=== PATIENT | female | born 1980 | race Caucasian/White ===

== ENCOUNTER 2017-06-05 03:50 | Emergency (ER) | payer BC ==
[~2017-06-05] VITALS: Ht 154.9 cm; Wt 62.1 kg
[~2017-06-05 03:50] MED LIST: ASPI1TAB30 PO; CLON1TAB PO; OXYC20TA34 PO; PROM25TA10 PO; SULF1TAB24 PO
--- NOTE | 2017-06-05 04:08 | PHYS DOC ---
Past History Past Medical History: Other Past Surgical History: , Tonsillectomy, Tubal ligation Alcohol Use: None Drug Use: None Adult General Chief Complaint Chief Complaint: PELVIC PAIN HPI HPI Patient is a 37 year old F who presents with right lower quadrant pain 24 hours. Patient states that over the past day her right lower quadrant pain has increased with associated nausea vomiting and no fevers. Patient denies any vaginal discharge. Patient states she still has her appendix however had her tubes tied. Patient denies any chest pain returns of breath. Patient has no other symptoms. Patient denies any dysuria. Review of Systems Review of Systems GEN: Denies fevers, chills, sweats HEENT: Denies blurred vision, sore throat CV: Denies chest pain RESP: Denies shortness of air, cough GI: RLQ pain with N/V NEURO: Denies confusion, dizziness MSK: Denies weakness, joint pain/swelling Current Medications Current Medications Current Medications Medications (Trade) Dose Ordered Sig/Dung Start Time Stop Time Status Last Admin Dose Admin Ketorolac Tromethamine (Toradol) 30 mg 1X ONCE 06/05/17 04:15 06/05/17 04:16 UNV Sodium Chloride 1,000 ml @ 1,000 mls/hr 1X ONCE 06/05/17 04:15 06/05/17 05:14 UNV Allergies Allergies Allergies Coded Allergies Type Severity Reaction Last Updated Verified No Known Drug Allergies 05/19/15 No Physical Exam Physical Exam GEN.: No apparent distress. Alert and oriented. HEENT: Head is normocephalic, atraumatic NECK: Supple. LUNGS: CTAB. HEART: RRR, S1, S2 present. Peripheral pulses intact ABDOMEN: Soft, tenderness palpation right lower quadrant with no rebound tenderness. Positive bowel sounds. EXTREMITIES: Without any cyanosis. NEUROLOGIC: Normal speech, normal tone PSYCHIATRIC: Normal affect, normal mood. SKIN: No ulcerations Current Patient Data Lab Results Current Medications Medications (Trade) Dose Ordered Sig/Dung Route PRN Reason Start Time Stop Time Status Last Admin Dose Admin Ketorolac Tromethamine (Toradol) 30 mg 1X ONCE IV 06/05/17 04:30 06/05/17 04:31 DC 06/05/17 04:30 Sodium Chloride 1,000 ml @ 1,000 mls/hr 1X ONCE IV 06/05/17 04:30 06/05/17 05:29 06/05/17 04:30 Iohexol (Omnipaque 300 Mg/ml) 75 ml 1X ONCE IV 06/05/17 04:30 06/05/17 04:31 DC 06/05/17 04:27 Info (Do NOT chart on this entry -- for MONITORING) 1 each PRN DAILY PRN MC SEE COMMENTS 06/05/17 04:30 06/07/17 04:29 EKG EKG Not performed [] Radiology/Procedures Radiology/Procedures CT abd and pelvis: IMPRESSION: 1. No definite evidence of bowel obstruction [place] [address] IMAGING REPORT Signed PATIENT: ARIAN GARCIA ACCOUNT: [id number] : 1980 LOCATION: ER AGE: 37 SEX: F EXAM STATUS: REG ER ORD. PHYSICIAN: SARAH KUMAR DO REASON: Right pelvic pain PROCEDURE: US PELVIS W/TV Pelvic ultrasound dated 06/05/2017. Comparison made to CT scan dated same day.. CLINICAL INDICATION: Pelvic pain and right lower quadrant pain and nausea for 2 days. FINDINGS: Transabdominal and transvaginal imaging was performed. Uterus measures 8.5 x 4.3 x 5.2 cm. Nodular focus at the posterior uterine body measures 2 cm in size, consistent with fibroid. Endometrial complex is normal in thickness for age measuring 4 mm. Right ovary measures 3.0 x 2.8 x 1.5 cm. Left ovary measures 2.7 x 3.0 x 1.3 cm. No adnexal mass or free fluid. Normal color Doppler flow to both ovaries. IMPRESSION: 1. No acute sonographic abnormality. 2. Fibroid uterus. Electronically signed by: Finesse Pitts MD (06/05/2017 7:21 AM) [facility] DICTATED AND SIGNED BY: FINESSE PITTS MD DATE: 06/05/17 07 CC: MARK SHRESTHA MD; JASS MAJOR APRN; SARAH KUMAR DO ~ [] Course & Med Decision Making Course & Med Decision Making Pertinent Labs and Imaging studies reviewed. (See chart for details) ED course: Patient was seen and examined the emergency room CBC, CMP, UA, and CT scan abdomen and pelvis were ordered along with 30 g of Toradol 0522: Patient still having right lower quadrant pain therefore will prescribe 50 g of fentanyl IV 0541: Patient is still having significant right lower quadrant/pelvis pain despite IV pain medication therefore we'll obtain an ultrasound the pelvis transvaginal to further evaluate. Patient denies any vaginal discharge or vaginal bleeding. 0600: Care has been transitioned to Dr. Shrestha who will follow-up on [labs], [ radiology], and final disposition of the patient. I see him care of patient at 0600. The patient's ultrasound imaging showed no acute abnormalities but did reveal evidence of fibroid uterus. Patient was given oral hydrocodone in the emergency department. Spoke with patient regarding findings on imaging. The source of patient's pain may be related to fibroids and possible premenstrual symptoms. The patient does note that she has had irregular periods over the past several months. The patient will be prescribed Naprosyn and hydrocodone to help with symptomatic control. Patient was referred to Dr. Calhoun of [facility] for follow-up in one week. I also recommended follow-up with patient's primary doctor in the next 1-2 days. Advised return emergency department for any worsening symptoms. Patient voiced understanding and in agreement with treatment plan. [] Dragon Disclaimer Dragon Disclaimer This chart was dictated in whole or in part using Voice Recognition software in a busy, high-work load, and often noisy Emergency Department environment. It may contain unintended and wholly unrecognized errors or omissions. Departure Departure: Impression: Primary Impression: Pelvic pain Disposition: 01 HOME, SELF-CARE Condition: IMPROVED Referrals: JASS MAJOR APRN (PCP) Patient Instructions: Pelvic Pain, Female Additional Instructions: Follow-up with your primary doctor in 1-2 days. Follow-up with Dr. Calhoun of [facility] in one week. The following is his office address and phone number: [phone] [address] Return to the emergency department for any worsening symptoms. Scripts Hydrocodone Bit/Acetaminophen (NORCO 5-325 TABLET) 1 Each Tablet 1-2 TAB PO Q4-6HRS Y for PAIN, #20 TAB Prov: MARK SHRESTHA MD 06/05/17 Naproxen (NAPROSYN) 500 Mg Tablet 1 TAB PO BID, #20 TAB 0 Refills Prov: MARK SHRESTHA MD 06/05/17 SARAH KUMAR DO Jun 05, 2017 04:08 MARK SHRESTHA MD Jun 05, 2017 07:46
[2017-06-05] MEDS ORDERED: IV NORMAL SALINE 1,000ML 1,000 ML IV ONE (04:30)
[2017-06-05] MEDS ORDERED: IOHEXOL 300 MG/ML 75 ML VIAL. IV ONE (04:30)
[2017-06-05] MEDS ORDERED: CONTRAST GIVEN MC PRN (04:30)
[2017-06-05] MEDS ORDERED: KETOROLAC 30 MG/ML VIAL. IV ONE (04:30)
--- NOTE | 2017-06-05 05:07 | RAD ---
INDICATION: [id number] Omni 300 75cc: Lower abdominal and pelvic pain with nausea x 2 days. Hx: Tubal ligation, . No priors. COMPARISON: None. TECHNIQUE: Axial CT images were obtained through the abdomen and pelvis with intravenous contrast. One or more of the following individualized dose reduction techniques were utilized for this examination: 1. Automated exposure control; 2. Adjustment of the mA and/or kV according to patient size; 3. Use of iterative reconstruction technique. FINDINGS: Abdomen: Chest Base: Partially imaged without gross abnormality. Vessels: No abdominal aortic aneurysm. Liver/Biliary: No intrahepatic biliary duct dilation. Pancreas: No peripancreatic edema. Spleen: Normal. Kidneys/Adrenal: No hydronephrosis. GI: No free air. No bowel dilation to suggest obstruction. Suspected appendix does not appear inflamed Pelvis: Bladder: No definite adjacent inflammation. Degenerative changes the spine including at L5-S1 where there is loss of disc space height with osteophyte formation and endplate sclerosis. Bilateral neural foraminal narrowing also suspected. IMPRESSION: 1. No definite evidence of bowel obstruction or appendicitis. Electronically signed by: Carlos Enrique Riggins MD (06/05/2017 5:04 AM) [facility]
[2017-06-05 05:31] LABS: BASO % 1 % (0-3); EOS # 0.4 x10^3/uL (0.0-0.7); EOS % 4 % (0-3); HEMATOCRIT 52.6 % (36.0-47.0); HEMOGLOBIN 17.6 g/dL (12.0-15.5); LYMPH # 2.4 x10^3/uL (1.0-4.8); LYMPH % 28 % (24-48); MEAN CORPUSCULAR HEMOGLOBIN 30 pg (25-35); MEAN CORPUSCULAR HGB CONC 34 g/dL (31-37); MEAN CORPUSCULAR VOLUME 90 fL (79-100); MONO # 0.7 x10^3/uL (0.0-1.1); MONO % 9 % (0-9); NEUT # 5.1 x10^3uL (1.8-7.7); NEUT % 59 % (31-73); PLATELET COUNT 266 x10^3/uL (140-400); RED BLOOD COUNT 5.82 x10^6/uL (3.50-5.40); RED CELL DISTRIBUTION WIDTH 14.4 % (11.5-14.5); WHITE BLOOD COUNT 8.6 x10^3/uL (4.0-11.0)
[2017-06-05 05:47] LABS: ALBUMIN 3.9 g/dL (3.4-5.0); ALBUMIN/GLOBULIN RATIO 1.1 (1.0-1.7); CALCIUM 9.3 mg/dL (8.5-10.1); CREATININE 1.1 mg/dL (0.6-1.0); GFR 55.9; POTASSIUM 3.8 mmol/L (3.5-5.1); TOTAL BILIRUBIN 0.4 mg/dL (0.2-1.0); TOTAL PROTEIN 7.3 g/dL (6.4-8.2)
[2017-06-05 05:50] LABS: BACTERIA,URINE MOD /HPF (0-FEW); BILIRUBIN,URINE NEG (NEG); CLARITY,URINE CLEAR; COLOR,URINE STRAW; GLUCOSE,URINE NEG (NEG); NITRITE,URINE NEG (NEG); RBC,URINE OCC /HPF (0-2); SQUAMOUS EPITHELIAL CELL,UR FEW /LPF; UROBILINOGEN,URINE 0.2 mg/dL (0.2 mg/dL)
[2017-06-05] MEDS ORDERED: fentaNYL PF 100 MCG/2 ML VIAL IV ONE (06:00)
[2017-06-05 06:08] LABS: U PREG PATIENT NEGATIVE (NEG)
--- NOTE | 2017-06-05 07:25 | RAD ---
Pelvic ultrasound dated 06/05/2017. Comparison made to CT scan dated same day.. CLINICAL INDICATION: Pelvic pain and right lower quadrant pain and nausea for 2 days. FINDINGS: Transabdominal and transvaginal imaging was performed. Uterus measures 8.5 x 4.3 x 5.2 cm. Nodular focus at the posterior uterine body measures 2 cm in size, consistent with fibroid. Endometrial complex is normal in thickness for age measuring 4 mm. Right ovary measures 3.0 x 2.8 x 1.5 cm. Left ovary measures 2.7 x 3.0 x 1.3 cm. No adnexal mass or free fluid. Normal color Doppler flow to both ovaries. IMPRESSION: 1. No acute sonographic abnormality. 2. Fibroid uterus. Electronically signed by: Finesse Pitts MD (06/05/2017 7:21 AM) [facility]
[2017-06-05] MEDS ORDERED: HYDR-971 PO (07:46)
[2017-06-05] MEDS ORDERED: NAPR500T PO (07:46)
[2017-06-05 07:50] VITALS: BP 132/91
[2017-06-05] MEDS ORDERED: HYDROcodone/APAP 7.5/325MG 1 TAB TABLET PO ONE (08:00)
== END 2017-06-05 07:52 | disposition home or self-care (01) ==
LOC: ER 03:50
DX: R10.2 Pelvic and perineal pain (principal); R11.2 Nausea with vomiting, unspecified; Z98.51 Tubal ligation status
CPT/HCPCS: 36415; 74177; 76830; 76856; 80053; 81001; 81025; 83690; 85027; 87086; 96361; 96374; 96375; 99285; J1885; J3010; Q9967; 87186; J7030

== ENCOUNTER 2017-08-15 15:55 | Emergency (ER) | payer BC ==
[~2017-08-15] VITALS: Ht 154.9 cm; Wt 58.1 kg
[~2017-08-15 15:55] MED LIST changes: -ASPI1TAB30 PO; +ASPI1TAB31 PO; +HYDR-971 PO; +NAPR500T PO
[2017-08-15] MEDS ORDERED: BUDE0.5A3 NEB (17:14)
[2017-08-15] MEDS ORDERED: IPRA15SP NS (17:14)
--- NOTE | 2017-08-15 17:14 | PHYS DOC ---
Past History Past Medical History: Bronchitis, Other Past Surgical History: Cervical Fusion, , Tonsillectomy, Tubal ligation Alcohol Use: None Drug Use: None Adult General Chief Complaint Chief Complaint: COUGH HPI HPI Patient is a 37 year old F who presents with nasal congestion and cough over the past 2 days. She also describes mild bilateral ear pain. She feels that her symptoms are worse when she is having a coughing spell. Her symptoms are worse in the evening. She has no alleviating factors. Review of Systems Review of Systems Constitutional: Denies fever or chills [] Eyes: Denies change in visual acuity, redness, or eye pain [] HENT: Negative except history of present illness Respiratory: Denies cough or shortness of breath [] Cardiovascular: No additional information not addressed in HPI [] GI: Denies abdominal pain, nausea, vomiting, bloody stools or diarrhea [] : Denies dysuria or hematuria [] Musculoskeletal: Denies back pain or joint pain [] Integument: Denies rash or skin lesions [] Neurologic: Denies headache, focal weakness or sensory changes [] Endocrine: Denies polyuria or polydipsia [] Family History Family History Noncontributory Current Medications Current Medications Medications reviewed Allergies Allergies Allergies Coded Allergies Type Severity Reaction Last Updated Verified No Known Drug Allergies 05/19/15 No Physical Exam Physical Exam Constitutional: Well developed, well nourished, no acute distress, non-toxic appearance. [] HENT: Normocephalic, atraumatic, bilateral external ears normal, moderate congestion and mucus bilateral nares Eyes: PERRLA, EOMI, conjunctiva normal, no discharge. [] Neck: Normal range of motion, no tenderness, supple, no stridor. [] Cardiovascular:Heart rate regular rhythm, no murmur [] Lungs & Thorax: Bilateral breath sounds clear to auscultation [] Abdomen: Bowel sounds normal, soft, no tenderness, no masses, no pulsatile masses. [] Skin: Warm, dry, no erythema, no rash. [] Back: No tenderness, no CVA tenderness. [] Extremities: No tenderness, no cyanosis, no clubbing, ROM intact, no edema. [] Neurologic: Alert and oriented X 3, normal motor function, normal sensory function, no focal deficits noted. [] Psychologic: Affect normal, judgement normal, mood normal. [] Current Patient Data Vital Signs Vital Signs Date Time Temp Pulse Resp B/P (MAP) Pulse Ox O2 Delivery O2 Flow Rate FiO2 08/15/17 15:55 98.6 93 20 96 Room Air EKG EKG [] Radiology/Procedures Radiology/Procedures [] Course & Med Decision Making Course & Med Decision Making Pertinent Labs and Imaging studies reviewed. (See chart for details) Imaging was declined Dragon Disclaimer Dragon Disclaimer This chart was dictated in whole or in part using Voice Recognition software in a busy, high-work load, and often noisy Emergency Department environment. It may contain unintended and wholly unrecognized errors or omissions. Departure Departure: Impression: Primary Impression: Upper respiratory infection Additional Impression: Bronchitis Disposition: HOME, SELF-CARE Condition: STABLE Referrals: ROSA STALLINGS MD (PCP) Patient Instructions: Acute Bronchitis, Upper Respiratory Infection, Adult Additional Instructions: Tala was seen in the emergency department for cough and nasal congestion. No emergency medical condition was found on history or physical exam. Her symptoms are most consistent with an upper respiratory infection and bronchitis. She is advised to use nasal saline rinses regularly. She was also given a prescription for nose spray and a steroid breathing treatment. She is advised follow-up with her primary care doctor in the next 3-5 days for further management. She is also advised return the emergency room if she develops new or worsening symptoms. Scripts Budesonide (PULMICORT) 0.5 Mg/2 Ml Ampul.neb 1 VIAL NEB BID for 7 Days, #60 VIAL 3 Refills Prov: COSTA BENZ MD 08/15/17 Ipratropium Lynd (IPRATROPIUM BROMIDE) 15 Ml [place] 15 ML NS TID for 7 Days, SPRAY Prov: COSTA BENZ MD 08/15/17 Problem Qualifiers Primary Impression: Upper respiratory infection URI type: unspecified URI Qualified Codes: J06.9 - Acute upper respiratory infection, unspecified COSTA BENZ MD Aug 15, 2017 17:14
[2017-08-15 17:30] VITALS: BP 138/95
== END 2017-08-15 17:30 | disposition home or self-care (01) ==
LOC: ER 15:55
DX: J06.9 Acute upper respiratory infection, unspecified (principal); J40 Bronchitis, not specified as acute or chronic; H92.03 Otalgia, bilateral
CPT/HCPCS: 99283

== ENCOUNTER 2017-09-19 18:50 | Emergency (ER) | payer BC ==
[~2017-09-19] VITALS: Ht 154.9 cm; Wt 60.8 kg
[~2017-09-19 18:50] MED LIST changes: +BUDE0.5A3 NEB; +IPRA15SP NS
[2017-09-19] MEDS ORDERED: HYDR-971 PO (20:31)
[2017-09-19] MEDS ORDERED: IBUP600T16 PO (20:31)
--- NOTE | 2017-09-19 20:31 | PHYS DOC ---
Past History Past Medical History: Bronchitis, Other Past Surgical History: Cervical Fusion, , Tonsillectomy, Tubal ligation Alcohol Use: None Drug Use: None Adult General Chief Complaint Chief Complaint: LOWER EXT PAIN HPI HPI Patient is a 37-year-old female who presents here today complaining of right knee pain that occurred when she actually stepped into a vent hole and landed on her knee and twisted her right knee. Patient reports she been weightbearing since then but with a lot of discomfort. Patient denies any other symptomatology. Patient has any fevers shakes chills nausea vomiting diarrhea. Review of systems: Constitutional: Denies fever or chills Eyes: Denies change in visual acuity, redness, or eye pain HENT: Denies nasal congestion or sore throat All other systems were reviewed and found to be within normal limits, except as documented in this note. Physical exam Constitutional: Well developed, well nourished, no acute distress, non-toxic appearance. HENT: Normocephalic, atraumatic, bilateral external ears normal, oropharynx moist, no oral exudates, nose normal. Eyes: PERRLA, EOMI, conjunctiva normal, no discharge. Neck: Normal range of motion, no tenderness, supple, no stridor. Cardiovascular:Heart rate regular rhythm, Lungs & Thorax: Bilateral breath sounds clear to auscultation Abdomen: Bowel sounds normal, soft, no tenderness, no masses, no pulsatile masses. Skin: Warm, dry, no erythema, no rash. Back: No tenderness, no CVA tenderness. Extremities: She was soft tissue tenderness to her right knee greatest in the patellar and medial aspect. Patient has no ligament laxity. The patient has no joint effusion. Patient has no erythema or break in the skin. No cyanosis, no clubbing, ROM intact, no edema. Neurologic: Alert and oriented X 3, normal motor function, normal sensory function, no focal deficits noted. Psychologic: Affect normal, judgement normal, mood normal. X-ray of right knee reveals no acute fracture or dislocation of the patella. No effusion. As interpreted by ER physician. Assessment and plan: 1. Right knee contusion/sprain secondary to fall. Patient be given Rosalia and ibuprofen here in the ED as well as an Colby wrap will be discharged home with the same. Patient is instructed to follow-up with her primary care physician for further evaluation. Patient is weightbearing. We'll continue with weightbearing as tolerated. Rest ice compression and elevation. Allergies Allergies Allergies Coded Allergies Type Severity Reaction Last Updated Verified No Known Drug Allergies 05/19/15 No EKG EKG [] Radiology/Procedures Radiology/Procedures [] Course & Med Decision Making Course & Med Decision Making Pertinent Labs and Imaging studies reviewed. (See chart for details) [] Dragon Disclaimer Dragon Disclaimer This electronic medical record was generated, in whole or in part, using a voice recognition dictation system. Departure Departure: Impression: Primary Impression: Right knee sprain Additional Impression: Contusion, knee Disposition: HOME, SELF-CARE Condition: IMPROVED Referrals: ROSA STALLINGS MD (PCP) Patient Instructions: Knee Pain, Knee Sprain Scripts Hydrocodone Bit/Acetaminophen (NORCO 5-325 TABLET) 1 Each Tablet 1 TAB PO PRN Q6HRS Y for PAIN, #12 TAB 0 Refills Prov: MAHENDRA STREETER MD 09/19/17 Ibuprofen (IBUPROFEN) 600 Mg Tablet 600 MG PO QID Y for PAIN, #20 Prov: MAHENDRA STREETER MD 09/19/17 Problem Qualifiers MAHENDRA STREETER MD Sep 19, 2017 20:31
[2017-09-19] MEDS ORDERED: HYDROcodone/APAP 5/325MG 1 TAB TABLET PO ONE (20:45)
[2017-09-19] MEDS ORDERED: IBUPROFEN 600 MG TABLET. PO ONE (20:45)
[2017-09-19 21:00] VITALS: BP 154/85
--- NOTE | 2017-09-20 07:50 | RAD ---
EXAM: Right knee, 4 views HISTORY: Fall with right knee pain. COMPARISON: None. FINDINGS: No fractures are identified. Joint spaces are maintained. Alignment is normal. There is no joint effusion. IMPRESSION: 1. No fracture or joint effusion.
== END 2017-09-19 21:03 | disposition home or self-care (01) ==
LOC: ER 18:50
DX: S83.91XA Sprain of unspecified site of right knee, initial encounter (principal); W18.31XA Fall on same level due to stepping on an object, initial encounter; Y93.89 Activity, other specified; Y99.8 Other external cause status; Y92.89 Other specified places as the place of occurrence of the external cause
CPT/HCPCS: 73564; 99284

== ENCOUNTER 2017-12-06 06:39 | Emergency (ER) | payer BC ==
[~2017-12-06] VITALS: Ht 154.9 cm; Wt 60.8 kg
[~2017-12-06 06:39] MED LIST changes: +IBUP600T16 PO; +NAPR-683 PO; -NAPR500T PO
--- NOTE | 2017-12-06 07:02 | PHYS DOC ---
General Chief Complaint: SKIN RASH/ABSCESS Stated Complaint: SKIN PROBLEM Time Seen by MD: 06:47 Source: patient, family Exam Limitations: no limitations Problems: History of Present Illness Initial Comments Patient is a 37-year-old female to the emergency department complaining of itchy rash. Patient states that yesterday afternoon she noticed "a small red spot on her wrist." Since that time she has developed a whole body itchy red rash with hives which became much worse this morning after taking a hot bath. She took one 25 mg Benadryl, Valium and oxycodone at 4 AM without any relief. She denies any new known exposures or medications denies any feeling as if she has a lump in her throat hoarseness coughing wheezing or dyspnea on exertion. On my evaluation she is very uncomfortable and agitated due to itching she describes her symptoms as severe and nothing she has tried has helped at all. No prior history of allergies or rashes and other than chronic back pain she denies any ongoing medical problems. Timing/Duration: 24 hours Severity: severe Modifying Factors: improves with cold therapy, worse with movement Associated Symptoms: rash Allergies: Coded Allergies: No Known Drug Allergies (Unverified , 05/19/15) Past Medical History Medical History: other (chronic back pain) Surgical History: noncontributory Family History Significant Family History: no pertinent family hx Social History Smoker: cigarettes Alcohol: none Drugs: none Review of Systems Constitutional: denies chills, denies diaphoresis, denies fever, denies malaise EENTM: denies throat swelling, denies mouth swelling Respiratory: denies cough, denies shortness of breath, denies stridor, denies wheezing Cardiovascular: denies chest pain, denies palpitations, denies syncope Gastrointestinal: denies abdominal pain, denies nausea, denies vomiting Musculoskeletal: see HPI Skin: see HPI Physical Exam General Appearance: WD/WN, severe distress Eyes: bilateral eye normal inspection, bilateral eye PERRL, bilateral eye EOMI Ear, Nose, Throat: hearing grossly normal, normal ENT inspection, normal pharynx (no soft tissue swelling airway is widely patent) Neck: non-tender, supple Respiratory: normal breath sounds, no respiratory distress Extremities: normal range of motion, no calf tenderness 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 The skin is warm and very erythematous) Orders, Labs, Meds Solu-Medrol 125 mg, Benadryl 25 mg, Pepcid 20 mg, and a 1 L normal saline IV bolus initiated. 0751: Patient rechecked, she is now resting comfortably itching has almost resolved. She still has some patches of redness remaining and the Solu-Medrol has not taken maximum effect. Rechecked, continued improvement will discharge home. Departure Time of Disposition: 07:51 Disposition: 01 HOME, SELF-CARE Diagnosis: allergic reaction NOS Condition: IMPROVED Patient Instructions: Allergy Tests Additional Instructions: Continue to try to isolate what possible new exposure could've caused today's symptoms. Cool temperature environment for optimal symptom control. [id number] Pepcid and Benadryl while taking prednisone. Prescription: Prednisone Follow-up with your doctor in 3-5 days for recheck and to consider possible allergy testing. Return to ED with new or changing symptoms. LATRICE HERNANDEZ DO Dec 06, 2017 07:02
[2017-12-06] MEDS ORDERED: methylPREDNISolone SOD SUCC PF 125 MG/2 ML VIAL. IV ONE (07:15)
[2017-12-06] MEDS ORDERED: diphenhydrAMINE 50 MG/ML VIAL IV ONE (07:15)
[2017-12-06] MEDS ORDERED: FAMOTIDINE 20 MG/2 ML VIAL IVP ONE (07:15)
[2017-12-06] MEDS ORDERED: IV NORMAL SALINE 1,000ML 1,000 ML IV SCH (07:30)
[2017-12-06] MEDS ORDERED: PRED20TA PO (07:50)
[2017-12-06 08:31] VITALS: BP 100/80
== END 2017-12-06 08:23 | disposition home or self-care (01) ==
LOC: ER 06:39
DX: T78.40XA Allergy, unspecified, initial encounter (principal); X58.XXXA Exposure to other specified factors, initial encounter; G89.29 Other chronic pain; F17.210 Nicotine dependence, cigarettes, uncomplicated
CPT/HCPCS: 96361; 96374; 96375; 99284; J1200; J2930; S0028; J7030

== ENCOUNTER 2017-12-30 23:17 | Emergency (ER) | payer SELFPAY ==
[~2017-12-30] VITALS: Ht 154.9 cm; Wt 62.6 kg
[~2017-12-30 23:17] MED LIST changes: +PRED20TA PO
[2017-12-30 23:20] VITALS: BP 128/80
[2017-12-30] MEDS ORDERED: diphenhydrAMINE 50 MG/ML VIAL ONE (23:31)
[2017-12-30] MEDS ORDERED: FAMOTIDINE 20 MG/2 ML VIAL ONE (23:31)
[2017-12-30] MEDS ORDERED: methylPREDNISolone SOD SUCC PF 125 MG/2 ML VIAL. ONE (23:31)
[2017-12-30] MEDS ORDERED: diphenhydrAMINE 50 MG/ML VIAL IVP ONE (23:45)
[2017-12-30] MEDS ORDERED: FAMOTIDINE 20 MG/2 ML VIAL IVP ONE (23:45)
[2017-12-30] MEDS ORDERED: methylPREDNISolone SOD SUCC PF 125 MG/2 ML VIAL. IV ONE (23:45)
[2017-12-31] MEDS ORDERED: LORazepam 2 MG/ML VIAL IV ONE (01:00)
[2017-12-31] MEDS ORDERED: IV NORMAL SALINE 1,000ML 1,000 ML IV SCH (01:00)
--- NOTE | 2017-12-31 01:07 | PHYS DOC ---
General Chief Complaint: ALLERGIC REACTION Stated Complaint: ALLERGIC REACTION,RASH POSSIBLE PEANUTS Time Seen by MD: 00:15 Source: patient Exam Limitations: no limitations Problems: History of Present Illness Initial Comments 37-year-old female comes to the ED complaining of allergic reaction. Patient states that symptoms began last night with some mild generalized itching. Symptoms have worsened today causing hives and redness over her body. Patient complains of itching and burning globally, she is constantly writhing rubbing and itching her skin. She is very anxious, she denies any cough hoarseness or trouble breathing some lip swelling is observed by me. Heart rate 110 bpm, oxygen saturation 97% on room air and vital signs are stable. No pre- arrival treatment patient had similar allergic reaction 1 month ago. No definite allergen unknown, patient thinks she may be allergic to peanuts but is uncertain that she had any actual peanut exposure. Timing/Duration: 24 hours Severity: severe Modifying Factors: improves with cold therapy, worse with movement Associated Symptoms: rash Allergies: Coded Allergies: No Known Drug Allergies (Unverified , 05/19/15) Past Medical History Medical History: no pertinent history, other Surgical History: noncontributory Family History Significant Family History: no pertinent family hx Social History Smoker: cigarettes Alcohol: none Drugs: none Review of Systems Constitutional: denies chills, denies diaphoresis, denies fever, denies malaise EENTM: see HPI, denies ear discharge, denies nose pain, denies nose congestion Respiratory: denies cough, denies shortness of breath, denies wheezing Cardiovascular: denies chest pain, denies palpitations, denies syncope Gastrointestinal: denies abdominal pain, denies diarrhea, denies nausea, denies vomiting Musculoskeletal: denies back pain, denies joint swelling, denies neck pain Skin: see HPI Psychiatric/Neurological: denies headache, denies numbness, denies paresthesia Immunological/Allergic: see HPI Physical Exam General Appearance: WD/WN, moderate distress Eyes: bilateral eye normal inspection, bilateral eye PERRL, bilateral eye EOMI Ear, Nose, Throat: hearing grossly normal, normal ENT inspection (lip swelling noted no tongue or throat swelling), normal pharynx Neck: non-tender, full range of motion, supple, other (no stridor) Respiratory: normal breath sounds, no respiratory distress Cardiovascular: normal peripheral pulses, regular rate, rhythm Extremities: normal range of motion, no pedal edema, no calf tenderness Neurologic/Psychiatric: waste oil pumper II-XII nml as tested, no motor/sensory deficits, alert, oriented x 3 Skin: warm/dry (erythema and hives over her entire skin surface worse at the skin folds and underclothing and warm areas) Orders, Labs, Meds 0144: Patient has received Solu-Medrol Benadryl and Pepcid in intravenously in addition to a normal saline bolus and 1 mg of Ativan. I rechecked her several times throughout the course and she is finally comfortable and resting quietly the hives have resolved she still has a few small red patches. Lip swelling has resolved completely. She continues to have no respiratory symptoms. She has some mild itching but is overall feeling better and expresses interest in discharge home. We will give prednisone by mouth to cover until morning I discussed the departure instructions including [id number] and prescription medications, remaining a cool temperature environment, and allergy testing with her doctor upon resolution of symptoms. She expressed agreement and understanding of the treatment plan her daughter will drive her home. Departure Time of Disposition: 01:46 Disposition: 01 HOME, SELF-CARE Diagnosis: allergic reaction Condition: IMPROVED Patient Instructions: Allergy Tests Additional Instructions: No driving or operating machinery while sedated with medication. Continue to try to identify and avoid potential causative substance. [id number] Pepcid 20 mg twice daily, Benadryl 25 mg every 6 hours while taking prednisone. Prescription: Prednisone, EpiPen Follow-up with your doctor in 7-10 days for recheck and to discuss possible allergy testing. Return to ED with new or changing symptoms. LATRICE HERNANDEZ DO Dec 31, 2017 01:07
[2017-12-31] MEDS ORDERED: PRED20TA PO (01:43)
[2017-12-31] MEDS ORDERED: EPIN0.3A3 IJ (01:50)
[2017-12-31] MEDS ORDERED: STARTER PACK-hydrOXYzine 1 STARTPACK TABLET PO ONE (02:15)
[2017-12-31] MEDS ORDERED: predniSONE 10 MG TABLET PO ONE (02:15)
== END 2017-12-31 02:05 | disposition home or self-care (01) ==
LOC: ER 23:17
DX: T78.40XA Allergy, unspecified, initial encounter (principal); F17.210 Nicotine dependence, cigarettes, uncomplicated; X58.XXXA Exposure to other specified factors, initial encounter
CPT/HCPCS: 96361; 96374; 96375; 99284; J1200; J2060; J2930; J7512; S0028; J7030

== ENCOUNTER 2018-04-06 12:12 | Emergency (ER) | payer BC ==
[~2018-04-06] VITALS: Ht 157.5 cm; Wt 56.7 kg
[~2018-04-06 12:12] MED LIST changes: +EPIN0.3A3 IJ
[2018-04-06] MEDS ORDERED: IV NORMAL SALINE 1,000ML 1,000 ML IV SCH (12:24)
--- NOTE | 2018-04-06 12:29 | PHYS DOC ---
Past History Additional Past Medical Histor: chronic back pain Past Surgical History: , Tonsillectomy, Tubal ligation Additional Past Surgical Histo: back surgery Smoking: Cigarettes Alcohol Use: None Drug Use: None Adult General Chief Complaint Chief Complaint: ABDOMINAL PAIN [facility] HPI Patient is a 38-year-old female who presents to the emergency department for evaluation of epigastric pain that has been present for the past 2-3 days. She has also had several episodes of nonbloody, nonbilious vomiting. She has had some diarrhea today as well. She has not had any documented fevers or chills, but has felt miner the past. Nothing in particular, including eating, seems to improve, or worsen, her pain. The pain radiates from her epigastric area towards her sides bilaterally. She denies any vaginal bleeding or discharge or lower abdominal pain. Except as noted above, there are no alleviating, or exacerbating factors to her symptoms Review of Systems Review of Systems Constitutional: Denies chills [] Eyes: Denies change in visual acuity, redness, or eye pain [] HENT: Denies nasal congestion or sore throat [] Respiratory: Denies cough or shortness of breath [] Cardiovascular: The patient denies any shortness of breath, chest pain, palpitations, or orthopnea [] GI: No additional information not addressed in HPI [] : Denies dysuria or hematuria [] Musculoskeletal: Denies back pain or joint pain [] Integument: Denies rash or skin lesions [] Neurologic: Denies headache, focal weakness or sensory changes [] Endocrine: Denies polyuria or polydipsia [] All other systems were reviewed and found to be within normal limits, except as documented in this note. Allergies Allergies Allergies Coded Allergies Type Severity Reaction Last Updated Verified No Known Drug Allergies 05/19/15 No Physical Exam Physical Exam PHYSICAL EXAM: CONSTITUTIONAL: Well developed, well nourished HEAD: normocephalic, atraumatic EENT: PERRL, EOMI. Conjunctivae normal color, sclerae non-icteric; moist mucous membranes. NECK: Supple, non-tender; no meningismus. LUNGS: Lungs CTA, breathing even and unlabored. Normal air movement. HEART: Regular rate and rhythm, no murmur CHEST: No deformity; non-tender ABDOMEN: The abdomen is soft, there is focal epigastric tenderness to palpation which reproduces the patient's pain, the remainder of the abdomen is soft and nontender, without rebound or guarding, the right upper quadrant is nontender, Christiansen's sign is absent, the lower abdomen including the right lower quadrant is non-tender, no masses or bruits. Normal bowel sounds EXTREM: Normal ROM; no deformity, no calf tenderness. Normal pulses palpable in all extremities. There is no pedal edema. SKIN: No rash; no diaphoresis NEURO: Alert; normal speech and cognition; CN's grossly intact; strength grossly intact without focal deficit. BACK: No CVA TTP. EKG EKG [Normal sinus rhythm a rate of 73 bpm, normal axis, normal intervals, there are no acute ischemic ST/T changes.] Radiology/Procedures Radiology/Procedures [] Impressions: PROCEDURE: CT ABD PELV W/ IV CONTRST ONLY CT of the abdomen and pelvis with contrast 04/06/2018 2:09 PM Indication: ABD PAIN SINCE LAST NIGHT, LEUKOCYTOSIS Comparison study: CT of the abdomen and pelvis June 05, 2017 Technique: Multidetector CT imaging of the abdomen and pelvis was performed following the administration of IV contrast. Findings: The partially visualized lung bases demonstrate no acute abnormality. Liver and gallbladder are grossly unremarkable. Spleen, adrenal glands, bilateral kidneys are unremarkable. The pancreatic duct is minimally prominent, but this is unchanged from prior study. There is no evidence of bowel obstruction. There is apparent thickening of the sigmoid colon and rectum. More mild possible thickening involving the descending colon is seen. Findings suggest a colitis. Differential considerations include infection and inflammatory change. Ischemia is less likely given distribution and patient age. The appendix is normal. Bladder is grossly unremarkable. The uterus is introverted but similar to prior studies. No significant free fluid or free air seen in the abdomen and pelvis. No acute osseous abnormality is identified. IMPRESSION: Thickening of the sigmoid colon and rectum, and to a lesser degree the descending colon. Findings favor colitis, which would most likely be infectious or inflammatory in etiology. Course & Med Decision Making Course & Med Decision Making Pertinent Labs and Imaging studies reviewed. (See chart for details) [2:40 PM: The patient's condition remained stable and she is feeling better at this time. Her labs show hemoconcentration with elevated hemoglobin and hematocrit, and white blood cell count of 13,000. CT scan was performed and showed evidence of colitis. The patient be treated with Cipro and Flagyl. She feels well enough to go home. The importance of close follow-up with her primary care provider and return precautions were discussed in detail.] Maria Antonia Disclaimer Marthaon Disclaimer This electronic medical record was generated, in whole or in part, using a voice recognition dictation system. Departure Departure: Impression: Primary Impression: Colitis Additional Impressions: Abdominal pain Nausea vomiting and diarrhea Disposition: HOME, SELF-CARE Condition: STABLE Referrals: ROSA STALLINGS MD (PCP) Patient Instructions: Abdominal Pain, Colitis, Nausea and Vomiting Scripts Ondansetron Hcl (ZOFRAN) 4 Mg Tablet 1 TAB PO Q6HRS, #20 TAB Prov: DODIE DUKE MD 04/06/18 Metronidazole (FLAGYL) 500 Mg Tablet 1 TAB PO BID, #14 TAB Prov: DODIE DUKE MD 04/06/18 Ciprofloxacin Hcl (CIPRO) 500 Mg Tablet 1 TAB PO BID, #14 TAB Prov: DODIE DUKE MD 04/06/18 Dicyclomine Hcl (DICYCLOMINE HCL) 20 Mg Tablet 1 TAB PO QID PRN for abdominal pain, #20 TAB Prov: DODIE DUKE MD 04/06/18 Problem Qualifiers DODIE DUKE MD Apr 06, 2018 12:29
[2018-04-06 12:52] LABS: BASO # 0.1 x10^3/uL (0.0-0.2); BASO % 1 % (0-3); EOS # 0.1 x10^3/uL (0.0-0.7); EOS % 1 % (0-3); HEMATOCRIT 54.9 % (36.0-47.0); HEMOGLOBIN 18.2 g/dL (12.0-15.5); LYMPH # 1.9 x10^3/uL (1.0-4.8); LYMPH % 14 % (24-48); MEAN CORPUSCULAR HEMOGLOBIN 31 pg (25-35); MEAN CORPUSCULAR HGB CONC 33 g/dL (31-37); MEAN CORPUSCULAR VOLUME 94 fL (79-100); MONO # 0.5 x10^3/uL (0.0-1.1); MONO % 3 % (0-9); NEUT # 11.2 x10^3uL (1.8-7.7); NEUT % 82 % (31-73); PLATELET COUNT 380 x10^3/uL (140-400); RED BLOOD COUNT 5.85 x10^6/uL (3.50-5.40); RED CELL DISTRIBUTION WIDTH 13.8 % (11.5-14.5); WHITE BLOOD COUNT 13.8 x10^3/uL (4.0-11.0)
[2018-04-06] MEDS: MORPHINE SULFATE 4 MG/ML DISP.SYRIN. IV/SQ PRN ×4 (12:53→15:51)
--- NOTE | 2018-04-06 12:59 | EKG ---
[address] [address] Test Date: 2018-04-06 Test Time: 12:53:01 Pat Name: ARIAN GARCIA Department: Room: Gender: F Special Procedure Tech: RANI : 1980 Requested By: DODIE DUKE Order Number: [id number] Reading MD: Measurements Intervals Mina Rate: 73 P: 62 MI: 140 QRS: 55 QRSD: 98 T: 66 QT: 364 QTc: 404 Interpretive Statements SINUS RHYTHM NORMAL ECG RI6.01 No previous ECG available for comparison
[2018-04-06] MEDS ORDERED: PANTOPRAZOLE IV 40 MG VIAL. IVP ONE (13:00)
[2018-04-06] MEDS ORDERED: ONDANSETRON PF 4 MG/2 ML VIAL. IV ONE (13:00)
[2018-04-06] MEDS ORDERED: LIDO:MAALOX 1:1 20 ML SINGLE DOSE. PO ONE (13:00)
[2018-04-06 13:01] LABS: PREG TEST PT QUAL NEGATIVE (NEG)
[2018-04-06 13:05] LABS: ALBUMIN 4.3 g/dL (3.4-5.0); ALBUMIN/GLOBULIN RATIO 1.1 (1.0-1.7); CALCIUM 9.9 mg/dL (8.5-10.1); CREATININE 1.2 mg/dL (0.6-1.0); GFR 50.3; POTASSIUM 3.8 mmol/L (3.5-5.1); TOTAL BILIRUBIN 0.8 mg/dL (0.2-1.0); TOTAL PROTEIN 8.3 g/dL (6.4-8.2)
[2018-04-06] MEDS ORDERED: IV NORMAL SALINE 1,000ML 1,000 ML IV ONE (13:30)
[2018-04-06] MEDS ORDERED: IOHEXOL 300 MG/ML 75 ML VIAL. IV ONE (13:45)
[2018-04-06] MEDS ORDERED: DICYCLOMINE HCL 20 MG TABLET PO ONE (13:45)
--- NOTE | 2018-04-06 14:20 | RAD ---
CT of the abdomen and pelvis with contrast 04/06/2018 2:09 PM Indication: ABD PAIN SINCE LAST NIGHT, LEUKOCYTOSIS Comparison study: CT of the abdomen and pelvis June 05, 2017 Technique: Multidetector CT imaging of the abdomen and pelvis was performed following the administration of IV contrast. Findings: The partially visualized lung bases demonstrate no acute abnormality. Liver and gallbladder are grossly unremarkable. Spleen, adrenal glands, bilateral kidneys are unremarkable. The pancreatic duct is minimally prominent, but this is unchanged from prior study. There is no evidence of bowel obstruction. There is apparent thickening of the sigmoid colon and rectum. More mild possible thickening involving the descending colon is seen. Findings suggest a colitis. Differential considerations include infection and inflammatory change. Ischemia is less likely given distribution and patient age. The appendix is normal. Bladder is grossly unremarkable. The uterus is introverted but similar to prior studies. No significant free fluid or free air seen in the abdomen and pelvis. No acute osseous abnormality is identified. IMPRESSION: Thickening of the sigmoid colon and rectum, and to a lesser degree the descending colon. Findings favor colitis, which would most likely be infectious or inflammatory in etiology. Electronically signed by: Steve Hay MD (04/06/2018 2:17 PM) [id number]
[2018-04-06 14:34] LABS: BILIRUBIN,URINE NEG (NEG); CLARITY,URINE CLOUDY; COLOR,URINE YELLOW; GLUCOSE,URINE NEG (NEG); NITRITE,URINE POS (NEG); UROBILINOGEN,URINE 0.2 mg/dL (0.2 mg/dL)
[2018-04-06 14:35] LABS: BACTERIA,URINE MOD /HPF (0-FEW); SQUAMOUS EPITHELIAL CELL,UR MANY /LPF
[2018-04-06 14:41] LABS: BARBITURATES NEG (NEG); BENZODIAZEPINES NEG (NEG); CANNABINOIDS NEG (NEG); COCAINE POS (NEG); METHADONE NEG (NEG); OPIATES POS (NEG); PHENCYCLIDINE NEG (NEG)
[2018-04-06 14:42] LABS: AMPHETAMINE/METHAMPHETAMINE NEG (NEG)
[2018-04-06] MEDS ORDERED: ONDA4TAB7 PO (14:46)
[2018-04-06] MEDS ORDERED: METR500T PO (14:46)
[2018-04-06] MEDS ORDERED: DICY20TA3 PO (14:46)
[2018-04-06] MEDS ORDERED: CIPR500T94 PO (14:46)
[2018-04-06] MEDS ORDERED: CIPROFLOXACIN 400MG PREMIX 200 ML IV ONE (15:00)
[2018-04-06] MEDS ORDERED: metroNIDAZOLE 500 MG TABLET PO ONE (15:00)
[2018-04-06 15:35] VITALS: BP 145/93
== END 2018-04-06 16:30 | disposition home or self-care (01) ==
LOC: ER 12:12
DX: K52.9 Noninfective gastroenteritis and colitis, unspecified (principal); G89.29 Other chronic pain; F17.210 Nicotine dependence, cigarettes, uncomplicated; Z98.51 Tubal ligation status; Z98.890 Other specified postprocedural states
CPT/HCPCS: 36415; 74177; 80053; 80307; 81001; 83690; 84703; 85025; 87086; 93005; 96361; 96365; 96375; 96376; 99285; C9113; J0744; J2270; J2405; Q9967; G0479; J7030

== ENCOUNTER 2018-08-30 18:38 | Emergency (ER) | payer SELFPAY ==
[~2018-08-30] VITALS: Ht 157.5 cm; Wt 56.7 kg
[~2018-08-30 18:38] MED LIST changes: +CIPR500T94 PO; +DICY20TA3 PO; +METR500T PO; +ONDA4TAB7 PO
--- NOTE | 2018-08-30 18:42 | ED.ADGEN ---
Past History Past Medical History: Anxiety, Sciatica Additional Past Medical Histor: chronic back pain Past Surgical History: , Tonsillectomy, Tubal ligation Additional Past Surgical Histo: back surgery Smoking: Cigarettes Alcohol Use: None Adult General Chief Complaint Chief Complaint ".. I fell tuesday.. [facility] HPI Patient is a 38 year old female who presents with above hx and complaints of fall after stepping thru. at air vent in the residence. Pt complaints of injury to both knees, Lt. ankle pain, pelvis, lumbar and Rt. wrist. Pt. has hx of chronic pain. Pt. seen Tuesday in Dr. Hermosillo office. No x-rays taken at that time. Pt. states pain in all sites are 08/09. Pt. is ambulatory. Can do straight leg lifts. Localizes knee pain on exam in bilateral medial collateral ligaments. Ankle lt. localized to lateral Fib./Malleolus area. Some laxity in ankle on anterior draw. Pt. localizes pain in anterior pelvic brim. Has point tenderness on Lt anterior axillary line rib 9. Has lumbar para spinal muscle tenderness. Rt. wrist tender on squeeze of distal radius and ulnar. Distal neurovascular intact. Pt. does have hx of chronic pain. Pt. denies illicit drug use. Pt. denies problems with defecation or urination. No fevers. No hx of immunosuppression. Follows with Dr. Hermosillo office. Review of Systems Review of Systems Constitutional: Denies fever or chills [] Eyes: Denies change in visual acuity, redness, or eye pain [] HENT: Denies nasal congestion or sore throat [] Respiratory: Denies cough or shortness of breath [] Cardiovascular: No additional information not addressed in [facility] [] GI: Denies abdominal pain, nausea, vomiting, bloody stools or diarrhea [] : Denies dysuria or hematuria [] Musculoskeletal: Multiple area of muscular/skeletal complaints Integument: Denies rash or skin lesions [] Neurologic: Denies headache, focal weakness or sensory changes [] Endocrine: Denies polyuria or polydipsia [] All other systems were reviewed and found to be within normal limits, except as documented in this note. Family History Family History Non-contributory Current Medications Current Medications Current Medications Medications (Trade) Dose Ordered Sig/Dung Start Time Stop Time Status Last Admin Dose Admin Ketorolac Tromethamine (Toradol Im) 60 mg 1X ONCE 08/30/18 19:15 08/30/18 19:18 DC 08/30/18 19:41 60 MG Methylprednisolone Acetate (DEPO-Medrol IM) 40 mg 1X ONCE 08/30/18 19:15 08/30/18 19:18 DC 08/30/18 19:38 40 MG Morphine Sulfate (Morphine 10mg Syringe) 5 mg 1X ONCE 08/30/18 22:30 08/30/18 22:31 DC 08/30/18 22:30 5 MG Orphenadrine Citrate (Norflex) 60 mg 1X ONCE 08/30/18 19:15 08/30/18 19:18 DC 08/30/18 19:43 60 MG Allergies Allergies Allergies Coded Allergies Type Severity Reaction Last Updated Verified peanut Allergy Intermediate 08/30/18 Yes Physical Exam Physical Exam Constitutional: moderate distress, non-toxic appearance. [] HENT: Normocephalic, atraumatic, bilateral external ears normal, oropharynx moist, no oral exudates, nose normal. [] Eyes: PERRLA, EOMI, conjunctiva normal, no discharge. [] Neck: Normal range of motion, no tenderness, supple, no stridor. [] Cardiovascular:Heart rate regular rhythm, no murmur [] Lungs & Thorax: Bilateral breath sounds equal at apex with scattered wheezes on auscultation []Chest wall tenderness as per HPI Abdomen: Bowel sounds normal, soft, no tenderness, no masses, no pulsatile masses. [] Old surgery scar Skin: Warm, dry, no erythema, no rash. []Tattoos Back:, no CVA tenderness. [] Lumbar sacral back surgery scar. Pain complaints as per history of present illness Extremities: Pain complaints as per history of present illness, no cyanosis, no clubbing, ROM intact, no edema. [] Neurologic: Alert and oriented X 3, normal motor function, normal sensory function, no focal deficits noted. []DTRs +2 patella and brachial. Psychologic: Affect normal, judgement normal, mood normal. [] Current Patient Data Vital Signs Vital Signs Date Time Temp Pulse Resp B/P (MAP) Pulse Ox O2 Delivery O2 Flow Rate FiO2 08/30/18 22:30 84 18 126/71 (89) 99 Room Air 08/30/18 18:50 98.1 Lab Results Laboratory Tests Test 08/30/18 18:50 Urine Opiates Screen Pos (NEG) Urine Methadone Screen Neg (NEG) Urine Barbiturates Neg (NEG) Urine Phencyclidine Screen Neg (NEG) Urine Amphetamine/Methamphetamine Pos (NEG) Urine Benzodiazepines Screen Neg (NEG) Urine Cocaine Screen Pos (NEG) Urine Cannabinoids Screen Neg (NEG) Urine Ethyl Alcohol Neg (NEG) EKG EKG [] Radiology/Procedures Radiology/Procedures My interpretation of x-ray shows[] Course & Med Decision Making Course & Med Decision Making Pertinent Labs and Imaging studies reviewed. (See chart for details). Ice packs when necessary. Tylenol and ibuprofen for pain. May take Flexeril 10 mg up 3 times a day for spasms. Follow-up with Dr. Hermosillo. Have him review the ER for evaluation. Have his input if physical therapy would be helpful. Encouraged patient to stop smoking. [] Final Impression Final Impression 1. Multiple skeletal and muscle skeletal complaints.[]Contusion & Sprains 2. Tobacco Use 3. Polysubstance Abuse Dragon Disclaimer Dragon Disclaimer This electronic medical record was generated, in whole or in part, using a voice recognition dictation system. SHAHID FENG MD Aug 30, 2018 18:42
[2018-08-30] MEDS ORDERED: ORPHENADRINE CITRATE 60 MG/2 ML VIAL. IM ONE (19:15)
[2018-08-30] MEDS ORDERED: KETOROLAC 60 MG/2 ML VIAL. IM ONE (19:15)
[2018-08-30] MEDS ORDERED: methylPREDNISolone ACETATE 40 MG/ML VIAL. IM ONE (19:15)
[2018-08-30 19:25] LABS: AMPHETAMINE/METHAMPHETAMINE POS (NEG); BARBITURATES NEG (NEG); BENZODIAZEPINES NEG (NEG); CANNABINOIDS NEG (NEG); COCAINE POS (NEG); METHADONE NEG (NEG); OPIATES POS (NEG); PHENCYCLIDINE NEG (NEG)
[2018-08-30] MEDS ORDERED: CYCL-331 PO (20:13)
--- NOTE | 2018-08-30 22:00 | RAD ---
Examination: CT LUMBAR SPINE WO CONTRAST History: FALL, BACK PAIN, ABNORMAL LOOKING XRAY AT L3, DOES HAVE A HX OF LAMINECTOMY AT L5S1 Comparison/Correlation: 04/06/2018 CT abdomen and pelvis with contrast Findings: Axial images of the lumbar spine were obtained. Sagittal and coronal reformatted images were provided. Topogram demonstrates significant L5-S1 disc space narrowing with vacuum phenomenon and spurring. Minimal retrolisthesis of L5 in relation S1 is present. Severe sclerosis of the L5-S1 endplates noted with disc space narrowing and vacuum phenomenon. Concentric disc bulge is evident. L3 limbus vertebra is noted. Spina bifida occulta at S1 noted. Visualized soft tissues of the retroperitoneum are grossly unremarkable. Impression: Severe L5-S1 degenerative changes and concentric disc bulge. Facet joint degenerative hypertrophy with narrowing of the neural foramina at this level in particular. L3 limbus vertebra. No suspicious process at L3. No significant change compared to previous CT exam. Electronically signed by: Andrey Hawk MD (08/30/2018 9:57 PM) [facility]
[2018-08-30 22:30] VITALS: BP 126/71
[2018-08-30] MEDS ORDERED: MORPHINE SULFATE 10 MG/ML SYRINGE. SQ ONE (22:30)
--- NOTE | 2018-08-30 23:58 | RAD ---
Examination: KNEE BILAT 4V History: FALL, KNEE PAIN Comparison/Correlation: None Findings: A total of 8 images of the knees were obtained. 4 views of each knee were provided. Patellar sunrise view of both knees was provided. Joint spaces are normal. No acute fracture or bone destruction. Soft tissues are unremarkable. No joint effusion. No degenerative change. Impression: Normal bilateral knee x-ray exam. Electronically signed by: Andrey Hawk MD (08/30/2018 11:55 PM) [facility]
--- NOTE | 2018-08-30 23:59 | RAD ---
Examination: CHEST PA LATERAL History: FALL, pain Comparison/Correlation: None Findings: PA and lateral views of chest were obtained. Heart size and pulmonary vasculature are normal. No infiltrate or pleural effusion. Bony structures are unremarkable. Impression: No active disease. If fracture is a persistent concern, consider additional imaging. Electronically signed by: Andrey Hawk MD (08/30/2018 11:56 PM) [facility]
--- NOTE | 2018-08-31 | RAD ---
Examination: LUMBAR SPINE 2-3V History: FALL, LOW BACK PAIN Comparison/Correlation: None Findings: Total 3 images of the lumbar spine were obtained including cone-down L5-S1 lateral view. Severe L5-S1 disc space narrowing is present with endplate sclerosis. Vertebral body heights are adequate. Limbus L3 superior vertebral body endplate is present. No acute fracture or bony destruction. Impression: Severe L5-S1 degenerative disc space findings. Electronically signed by: Andrey Hawk MD (08/30/2018 11:57 PM) [facility]
--- NOTE | 2018-08-31 00:01 | RAD ---
Examination: ANKLE LEFT 3V History: FALL , LEFT ANKLE PAIN Comparison/Correlation: None Findings: Total 3 images of the left ankle were obtained. Joint spaces are normal. No acute fracture or bony destruction. Soft tissues are normal. Impression: Normal left ankle 3 view x-ray exam. Electronically signed by: Andrey Hawk MD (08/30/2018 11:58 PM) [facility]
--- NOTE | 2018-08-31 00:02 | RAD ---
Examination: WRIST 3V RIGHT History: FALL, RIGHT WRIST PAIN Comparison/Correlation: None Findings: Total 3 images of the right wrist were obtained. Joint spaces are normal. No fracture or bony destruction. No significant degenerative change. Small cyst involves the scaphoid bone is noted. Impression: No acute process. Consider interval follow-up exam if scaphoid injury is a persistent concern. Electronically signed by: Andrey Hawk MD (08/30/2018 11:59 PM) [facility]
--- NOTE | 2018-08-31 00:03 | RAD ---
Examination: PELVIS History: FALL, PELVIC PAIN Comparison/Correlation: None Findings: Frontal view of the pelvis was obtained. Sacroiliac and hip joint spaces are normal. No fracture or bony destruction. Soft tissues are normal. Impression: Normal frontal view of the pelvis. Electronically signed by: Andrey Hawk MD (08/31/2018 12:01 AM) [facility]
== END 2018-08-30 20:30 | disposition home or self-care (01) ==
LOC: ER 18:38
DX: S93.402A Sprain of unspecified ligament of left ankle, initial encounter (principal); S83.92XA Sprain of unspecified site of left knee, initial encounter; S83.91XA Sprain of unspecified site of right knee, initial encounter; S63.501A Unspecified sprain of right wrist, initial encounter; S33.9XXA Sprain of unspecified parts of lumbar spine and pelvis, initial encounter; S33.5XXA Sprain of ligaments of lumbar spine, initial encounter; G89.29 Other chronic pain; R07.81 Pleurodynia; F41.9 Anxiety disorder, unspecified; F17.210 Nicotine dependence, cigarettes, uncomplicated; Z91.010 Allergy to peanuts; W17.89XA Other fall from one level to another, initial encounter; Y93.89 Activity, other specified; Y92.89 Other specified places as the place of occurrence of the external cause; Y99.8 Other external cause status
CPT/HCPCS: 36415; 71046; 72100; 72131; 72170; 73110; 73564; 73610; 80307; 81025; 96372; 99285; J1030; J1885; J2270; J2360; G0479